=== PATIENT | female | born 1960 | race Caucasian/White ===

== ENCOUNTER 2020-09-15 11:58 | Emergency (ER) | payer OTHER ==
[~2020-09-15] VITALS: Ht 157.5 cm; Wt 58.5 kg
[2020-09-15] MEDS ORDERED: LOSA25 PO (12:15)
[2020-09-15] MEDS ORDERED: METO25ER PO (12:15)
[2020-09-15] MEDS ORDERED: ATOR40TA (12:16)
[2020-09-15] MEDS ORDERED: ZOLOFT100 M6 PO (12:16)
[2020-09-15] MEDS ORDERED: POTA8 (12:16)
[2020-09-15] MEDS ORDERED: GABA100 PO (12:16)
[2020-09-15] MEDS ORDERED: Buspirone HCl15 MG PO (12:17)
[2020-09-15] MEDS ORDERED: CYCL10 PO (12:18)
[2020-09-15] MEDS ORDERED: NITROGLYCERIN0.4 M3 SL (12:18)
[2020-09-15 12:28] LABS: BASOPHILS ABSOLUTE AUTO 0.06 K/mm3 (0.00-0.23); BASOPHILS PERCENT AUTO 1 % (0-2); EOSINOPHILS ABSOLUTE AUTO 0.15 K/mm3 (0.00-0.68); EOSINOPHILS PERCENT AUTO 2 % (0-6); Hemoglobin 10.8 g/dL (11.5-16.0); IMMATURE GRAN ABSOLUTE AUTO 0.05 K/mm3 (0.00-0.10); IMMATURE GRAN PERCENT AUTO 1 % (0-1); LYMPHOCYTES ABSOLUTE AUTO 1.77 K/mm3 (0.84-5.20); LYMPHOCYTES PERCENT AUTO 22 % (21-46); MONOCYTES ABSOLUTE AUTO 0.46 K/mm3 (0.16-1.47); MONOCYTES PERCENT AUTO 6 % (4-13); Mean Corpuscular HGB 29.8 pg (26.0-34.0); Mean Corpuscular HGB Conc 31.8 g/dL (31.5-36.5); Mean Corpuscular Volume 94 fL (80-100); Mean Platelet Volume 11.1 fL (9.1-12.4); NEUTROPHILS ABSOLUTE AUTO 5.55 K/mm3 (1.96-9.15); NEUTROPHILS PERCENT AUTO 69 % (41-73); Platelet Count 304 K/mm3 (150-400); RDW Coefficient Variation 12.9 % (11.7-14.2); RDW Standard Deviation 44.5 fL (35.1-46.3); Red Blood Cell Count 3.62 M/mm3 (3.80-5.20); White Blood Cell Count 8.04 K/mm3 (4.00-11.30)
[2020-09-15 12:35] LABS: Source, Urine Clean Catch
[2020-09-15 12:53] LABS: Alanine Aminotransfer (ALT/SGP 20 U/L (12-78); Albumin, Blood 3.6 g/dL (3.4-5.0); Albumin/Globulin Ratio 1.1 (0.8-1.8); Alk Phos 59 U/L (50-136); Anion Gap 4 mmol/L (6-16); Aspartate Aminotrans (AST/SGOT 15 U/L (12-37); Bilirubin, Total 0.2 mg/dL (0.1-1.0); Blood Urea Nitrogen 22 mg/dL (8-24); Bun/Creatinine Ratio 21.2 (12.0-20.0); CO2, Blood 26 mmol/L (21-32); Chloride, Blood 108 mmol/L (98-108); Creatinine, Blood 1.04 mg/dL (0.40-1.00); Globulin, Blood 3.2 g/dL (2.2-4.0); Glomerular Filtration Rate 54 (60-); Glucose, Blood 113 mg/dL (70-99); Potassium, Blood 4.4 mmol/L (3.5-5.5); Sodium, Blood 138 mmol/L (136-145); Total Protein, Blood 6.8 g/dL (6.4-8.2); Troponin I <0.015 ng/mL (0.000-0.040)
[2020-09-15 13:00] LABS: Appearance, Urine Clear (Clear); Bilirubin, Urine Neg (Neg); Blood, Urine 1+ (Neg); Color, Urine Yellow (P-Yellow); Glucose Qualitative, Urine Neg (Neg); Ketones, Urine Neg (Neg); Leukocyte Esterase, Urine Neg (Neg); Nitrite, Urine Neg (Neg); Protein, Urine 1+ (Neg); Urobilinogen, Urine NORM (Normal)
[2020-09-15 13:14] LABS: Squamous Epithelial Cells Few /hpf (Few); White Blood Cells, Urine 0-2 /hpf (0-5)
[2020-09-15 13:15] LABS: Bacteria Not Seen /hpf
== END 2020-09-15 13:15 | disposition home or self-care (01) ==
LOC: ER 11:58
PROVIDERS: Emergency Medicine
DX: R55 Syncope and collapse (principal); F17.210 Nicotine dependence, cigarettes, uncomplicated; Z79.899 Other long term (current) drug therapy
CPT/HCPCS: 36415; 71046; 80053; 81001; 84484; 85025; 93005; 93010; 99285-25

== ENCOUNTER 2022-11-09 09:48 | Emergency (ER) | payer OTHER ==
[~2022-11-09] VITALS: Ht 160 cm; Wt 90.7 kg
[~2022-11-09 09:48] MED LIST: ATOR40TA; Buspirone HCl15 MG PO; CYCL10 PO; GABA100 PO; LOSA25 PO; METO25ER PO; NITROGLYCERIN0.4 M3 SL; POTA8; ZOLOFT100 M6 PO
[2022-11-09 10:27] LABS: Hematocrit 39.9 % (33.0-51.0); Hemoglobin 14.2 g/dL (11.5-16.0); Mean Corpuscular HGB 29.3 pg (26.0-34.0); Mean Corpuscular HGB Conc 35.6 g/dL (31.5-36.5); Mean Corpuscular Volume 82 fL (80-100); Mean Platelet Volume 11.7 fL (9.1-12.4); Platelet Count 268 K/mm3 (150-400); RDW Coefficient Variation 12.6 % (11.7-14.2); RDW Standard Deviation 37.8 fL (35.1-46.3); Red Blood Cell Count 4.84 M/mm3 (3.80-5.20)
[2022-11-09 10:46] LABS: Albumin, Blood 3.7 g/dL (3.4-5.0); Albumin/Globulin Ratio 0.9 (0.8-1.8); Bilirubin, Total 0.4 mg/dL (0.1-1.0); Bun/Creatinine Ratio 17.2 (12.0-20.0); Creatinine, Blood 0.75 mg/dL (0.40-1.00); Globulin, Blood 3.9 g/dL (2.2-4.0); Potassium, Blood 3.6 mmol/L (3.5-5.5); Total Protein, Blood 7.6 g/dL (6.4-8.2)
[2022-11-09 10:52] LABS: BASOPHILS PERCENT MAN 0 % (0-2); EOSINOPHILS ABSOLUTE MAN 0.27 K/mm3 (0.00-0.68); EOSINOPHILS PERCENT MAN 3 % (0-6); LYMPHOCYTES PERCENT MAN 11 % (21-46); MONOCYTES ABSOLUTE MAN 0.36 K/mm3 (0.16-1.47); MONOCYTES PERCENT MAN 4 % (4-13); NEUTROPHILS ABSOLUTE MAN 7.46 K/mm3 (1.96-9.15); SEG NEUTROPHILS PERCENT MAN 82 % (41-73); TOTAL CELLS COUNTED 100
[2022-11-09] MEDS ORDERED: LOPE2C PO (11:53)
[2022-11-09] MEDS ORDERED: ALBU90OI INH (11:53)
[2022-11-09] MEDS ORDERED: ONDA4ODT MM (11:53)
[2022-11-09 12:00] VITALS: BP 187/87
== END 2022-11-09 12:10 | disposition home or self-care (01) ==
LOC: ER 09:48
PROVIDERS: Physician Assistant
DX: R05.9 Cough, unspecified (principal); R09.81 Nasal congestion; R19.7 Diarrhea, unspecified; R06.02 Shortness of breath; R53.83 Other fatigue; R50.9 Fever, unspecified; R53.1 Weakness; F17.210 Nicotine dependence, cigarettes, uncomplicated; Z20.822 Contact with and (suspected) exposure to COVID-19; Z91.040 Latex allergy status
CPT/HCPCS: 71045; 80053; 85025; 96374; 96375; 99284-25; C9113; J2405; J7030

== ENCOUNTER 2024-03-30 06:17 | Day surgery (SDC) | payer OTHER ==
[~2024-03-30] VITALS: Ht 152.4 cm; Wt 75.4 kg
[~2024-03-30 06:17] MED LIST changes: +ALBU90OI INH; +LOPE2C PO; +ONDA4ODT MM
[2024-03-30] MEDS ORDERED: Lactated Ringer's 1,000 ML IV SCH (06:20)
[2024-03-30 07:01] VITALS: BP 140/79
[2024-03-30] MEDS ORDERED: AMLODIPINE BESY10 MG PO (07:09)
[2024-03-30] MEDS ORDERED: CYMBALTA30 M2 PO (07:09)
--- NOTE | 2024-03-30 07:10 | NUR ---
History, Chart, Medications and Allergies reviewed before start of procedure. Pre-Op teaching done. Pt verbalizes understanding. Patient confirms NPO status and agrees with scheduled surgery. Patient States Post-Procedure ride home has been arranged.
[2024-03-30] MEDS ORDERED: propofoL 40 ML IV ONE (07:11)
--- NOTE | 2024-03-30 07:27 | NUR ---
03/30/24 0727 Daksha Vergara MONITOR INTACT WITH CONTINUOUS PULSE OXIMETRY, CONTINUOUS END TITAL CO2, AND INTERMITTENT BLOOD PRESSURE. O2 VIA POM INTACT THROUGHOUT SEDATION/PROCEDURE. SEE ANESTHESIA RECORD FROM DR. FROST.
[2024-03-30 07:52] VITALS: BP 134/70
[2024-03-30 08:00] VITALS: BP 127/90
[2024-03-30 08:15] VITALS: BP 149/75
--- NOTE | 2024-03-30 08:28 | NUR ---
Patient up to Ambulate independently. Gait steady. Discharge instructions reviewed with patient. Patient verbalizes understanding. Copy given to patient to take home. Patient States Post-Procedure ride home has been arranged. Discharged via wheelchair to private car for ride home. PT REPORTS TOLERATING PO.DENIES PAIN. REPORTS READY TO GO HOME. SKIP/[address] JAEGER.
== END 2024-03-30 08:28 | disposition home or self-care (01) ==
LOC: ORSCMMR 06:17 → ORD 07:30 → ORSCMMR 08:28
PROVIDERS: Internal Medicine Gastroenterology
PROC: 0DBL8ZX Excision of Transverse Colon, Via Natural or Artificial Opening Endoscopic, Diagnostic (ICD-10-PCS; principal; 2024-03-30 07:30)
PROC: 0DBN8ZX Excision of Sigmoid Colon, Via Natural or Artificial Opening Endoscopic, Diagnostic (ICD-10-PCS; principal; 2024-03-30 07:30)
DX: Z12.11 Encounter for screening for malignant neoplasm of colon (principal); D12.5 Benign neoplasm of sigmoid colon; I10 Essential (primary) hypertension; G47.33 Obstructive sleep apnea (adult) (pediatric); F17.210 Nicotine dependence, cigarettes, uncomplicated; F41.9 Anxiety disorder, unspecified; F32.A Depression, unspecified; K64.8 Other hemorrhoids; Z79.899 Other long term (current) drug therapy
CPT/HCPCS: 88305; J2704